=== PATIENT | male | born 1965 | race Caucasian/White ===

== ENCOUNTER 2019-09-11 19:04 | Emergency (ER) | payer BC ==
[2019-09-11 19:17] VITALS: BP 125/89
--- NOTE | 2019-09-11 19:47 | UC ---
Hand/Wrist HPI - HPI Summary HPI Summary: Patient is 54-year-old female presenting with right wrist pain since yesterday afternoon. 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 Patient notes increased pain with certain movements. He describes pain as throbbing. Denies radiating pain. Notes wrist swelling. Denies bruising. Denies numbness and tingling. 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 Has iced and taken ibuprofen with some relief. - History Of Current Complaint Chief Complaint: UCUpperExtremity Stated Complaint: RIGHT WRIST INJURY Hx Obtained From: Patient Onset/Duration: Sudden Onset Severity Currently: Moderate Pain Intensity: 6 - Allergies/Home Medications Allergies/Adverse Reactions: Allergies Allergy/AdvReac Type Severity Reaction Status Date / Time No Known Allergies Allergy Verified 09/11/19 19:16 Home Medications: Home Medications Ibuprofen TAB* [Advil TAB*] 800 mg PO Q6H PRN 09/11/19 [History Confirmed ] PMH/Surg Hx/FS Hx/Imm Hx Previously Healthy: Yes - Surgical History Surgical History: None - Family History Known Family History: Positive: Non-Contributory - Social History Alcohol Use: Rare Substance Use Type: None Smoking Status (MU): Never Smoked Tobacco Review of Systems All Other Systems Reviewed And Are Negative: No Constitutional: Positive: Negative Respiratory: Positive: Negative Cardiovascular: Positive: Negative Musculoskeletal: Positive: Arthralgia, Decreased ROM, Edema Neurological: Positive: Weakness. Negative: Paresthesia, Numbness Physical Exam Triage Information Reviewed: Yes Appearance: Well-Appearing, No Pain Distress, Well-Nourished Vital Signs: Initial Vital Signs Temp 97.7 F 09/11/19 19:13 Pulse 79 09/11/19 19:13 Resp 15 09/11/19 19:13 BP 125/89 09/11/19 19:13 Pulse Ox 96 09/11/19 19:13 Vital Signs Reviewed: Yes Eyes: Positive: Conjunctiva Clear ENT: Positive: Hearing grossly normal Neck: Positive: Supple Respiratory: Positive: No respiratory distress Cardiovascular: Positive: Pulses Normal - Strong radial pulses bilaterally, Brisk Capillary Refill Musculoskeletal: Positive: Strength Intact, ROM Intact, Edema @ - Mild edema noted of the right wrist., Other: - Mild pain with wrist flexion, extension, supination, pronation. No tenderness to palpation of wrist. Neurological Exam: Normal, Other - Sensation grossly intact Neurological: Positive: Alert Psychological: Positive: Age Appropriate Behavior Skin Exam: Normal, Other - no ecchymosis noted Diagnostics - Radiology right wrist Radiology Interpretation Completed By: ED Physician Hand/Wrist Course/Dx - Course Course Of Treatment: Discussed with patient no fractures on initial read of x-rays. Informed him that official report will be obtained tomorrow. Instructed him to continue symptomatic treatment including use of cock up splint. Instructed to follow up with pcp or ortho if pain persists. Patient voiced understanding and agreed with treatment plan. - Differential Dx/Diagnosis Provider Diagnosis: Right wrist sprain Discharge ED - Sign-Out/Discharge Documenting (check all that apply): Patient Departure All imaging exams completed and their final reports reviewed: No - Discharge Plan Condition: Stable Disposition: HOME Patient Education Materials: Wrist Sprain (ED) Referrals: Osorio Narvaez MD [Primary Care Provider] - If Needed Anthony Bruce MD [Medical Doctor] - If Needed Additional Instructions: Your x-rays were read tonight by the provider who treated you. No fractures were found. The final report will be obtained tomorrow and you will be notified with any abnormalities. Continue to rest, ice, elevate, and use the wrist splint to help relieve pain. You may also use over the counter pain medications as directed for relief of pain. If pain does not resolve, follow up with your PCP or orthopedics as listed below. Return or go to the emergency room if pain worsens, the hand becomes cold and numb, or you are unable to move the wrist or hand. - Billing Disposition and Condition Condition: STABLE Disposition: Home
--- NOTE | 2019-09-12 11:47 | ED ---
Progress - Progress Note Progress Note: Final xray report reviewed: No Fx; mild osteoarthritis. Course/Dx - Diagnoses Provider Diagnoses: Right wrist sprain Discharge ED - Sign-Out/Discharge Documenting (check all that apply): Patient Departure All imaging exams completed and their final reports reviewed: Yes - Discharge Plan Condition: Stable Disposition: HOME Patient Education Materials: Wrist Sprain (ED) Referrals: Osorio Narvaez MD [Primary Care Provider] - If Needed Anthony Bruce MD [Medical Doctor] - If Needed Additional Instructions: Your x-rays were read tonight by the provider who treated you. No fractures were found. The final report will be obtained tomorrow and you will be notified with any abnormalities. Continue to rest, ice, elevate, and use the wrist splint to help relieve pain. You may also use over the counter pain medications as directed for relief of pain. If pain does not resolve, follow up with your PCP or orthopedics as listed below. Return or go to the emergency room if pain worsens, the hand becomes cold and numb, or you are unable to move the wrist or hand. - Billing Disposition and Condition Condition: STABLE Disposition: Home
== END 2019-09-11 20:51 | disposition home or self-care (01) ==
LOC: UCCORT 19:04
DX: M25.531 Pain in right wrist (principal); R53.1 Weakness
CPT/HCPCS: 99202; G0463